=== PATIENT | male | born 1940 | race Caucasian/White ===

== ENCOUNTER 2021-12-04 15:06 | Observation (INO) | payer MEDICARE ==
[~2021-12-04] VITALS: Ht 175.3 cm; Wt 90.3 kg
[~2021-12-04 15:06] MED LIST: DOXYCYCLINE MO100 MG PO; PHOSLO 667 MG667 MG PO; PREDNISONE 50 M50 MG PO
[2021-12-04 15:32] LABS: HEMOGLOBIN 12.3 gm/dl (14.0-17.5); RED BLOOD COUNT 4.01 M/UL (4.20-5.50); WHITE BLOOD COUNT 8.6 K/UL (4.5-11.0)
--- NOTE | 2021-12-05 00:33 | NUR ---
UNABLE TO OBTAIN ANY OF PT'S HOME MEDICATIONS. PT COULD NOT TELL ME THE NAMES NOR VERIFY ANY MEDICATIONS. PT LIVES WITH HIS GRAND-DAUGHTER BUT IS UNABLE TO PROVIDE A PHONE NUMBER FOR HER AT THIS TIME.
[2021-12-05 03:49] LABS: HEMOGLOBIN 12.6 gm/dl (14.0-17.5); RED BLOOD COUNT 4.04 M/UL (4.20-5.50); WHITE BLOOD COUNT 7.4 K/UL (4.5-11.0)
[2021-12-05] MEDS ORDERED: ASPIRIN EC81 MG PO (13:00)
[2021-12-05] MEDS ORDERED: TOPROL XL25 MG PO (13:04)
[2021-12-05] MEDS ORDERED: LIPITOR80 MG PO (13:13)
[2021-12-05] MEDS ORDERED: SYMBICORT 16010.2 GM INH (13:14)
[2021-12-05] MEDS ORDERED: HUMALOG100 UNIT/3 SC (13:27)
[2021-12-05] MEDS ORDERED: SPIRIVA HANDIH18 MCG INH (13:34)
[2021-12-05] MEDS ORDERED: PROVENTIL HFA6.7 GM INH (13:36)
== END 2021-12-05 17:51 | disposition home or self-care (01) ==
LOC: ER1 15:06 → CDU 17:25 → MED SURG 4 17:25
PROVIDERS: Preventive Medicine Occupational Medicine; ADMIT Internal Medicine
DX: E87.70 Fluid overload, unspecified (principal); E11.22 Type 2 diabetes mellitus with diabetic chronic kidney disease; I12.0 Hypertensive chronic kidney disease with stage 5 chronic kidney disease or end stage renal disease; N18.6 End stage renal disease; I25.10 Atherosclerotic heart disease of native coronary artery without angina pectoris; Z99.2 Dependence on renal dialysis; Z91.15 Patient's noncompliance with renal dialysis; Z87.891 Personal history of nicotine dependence; Z79.4 Long term (current) use of insulin; Z79.82 Long term (current) use of aspirin; Z79.899 Other long term (current) drug therapy
CPT/HCPCS: 36415; 71045; 80048; 80053; 82550; 82553; 83540; 83550; 83690; 83735; 83874; 83880; 84484; 85025; 85027; 85652; 86140; 93005; 94640; 94664; 94760; 96372; 97161; 97165; 99285; A6212; G0257; G0378; J1644; J1940; U0002